=== PATIENT | female | born 1985 | race Caucasian/White ===

== ENCOUNTER 2016-06-28 17:14 | Emergency (ER) | payer BC ==
[2016-06-28 17:38] LABS: URINE SOURCE CLEAN CATCH
[2016-06-28 17:41] LABS: URINE APPEARANCE CLOUDY; URINE BLOOD 3+ (NEG); URINE COLOR BROWN; URINE GLUCOSE NEG (NORM); URINE KETONE 1+ (NEG); URINE LEUKOCYTE ESTERASE 3+ (NEG); URINE NITRATE POS (NEG); URINE PROTEIN 3+ (NEG); URINE SPECIFIC GRAVITY 1.025 (1.003-1.035)
[2016-06-28 17:44] LABS: MICRO INDICATED? YES; URINE BILIRUBIN NEG (NEG)
[2016-06-28 17:48] LABS: URINE BACTERIA 1+ (NEG); URINE RBC INNUM /[HPF] (0-2); URINE WBC 50-100 /[HPF] (0-5)
== END 2016-06-28 17:51 | disposition home or self-care (01) ==
LOC: SED 17:14
PROVIDERS: Physician Assistant
DX: N30.90 Cystitis, unspecified without hematuria (principal)
CPT/HCPCS: 81003; 84703; 99283